=== PATIENT | female | born 1965 | race Caucasian/White ===

== ENCOUNTER 2018-05-06 14:46 | Inpatient (IN) | payer MEDICARE, MEDICAID ==
[2018-05-06] MEDS ORDERED: SUMAtriptan 50 MG Tab PO PRN (16:54)
[2018-05-06] MEDS ORDERED: Naloxone 0.4 MG/ML SDV IV PRN (16:55)
[2018-05-06] MEDS ORDERED: Dextrose 5%-Lactated Ringers 1,000 ML IV SCH (17:00)
[2018-05-06] MEDS: MVI, Adult with Vitamin K 10 ML, Chromium/Copper/Mang/Selen/Zn 1 ML in Dextrose 5%-Lact... IV SCH ×3 (17:38)
[2018-05-06] MEDS: HYDROmorphone/Normal Saline 15 MG/30 ML PCA IV PRN (17:40)
[2018-05-06] MEDS: Pantoprazole 40 MG Vial IV SCH (17:47)
[2018-05-06] MEDS: Magnesium Sulfate/Water 2 GM in Premix Bag 1 BAG IV SCH (17:57)
[2018-05-06] MEDS: ALPRAZolam 0.5 MG Tab PO PRN (20:02)
[2018-05-06] MEDS: Mirtazapine 15 MG Tab PO SCH (20:03)
[2018-05-07] MEDS: Magnesium Sulfate/Water 2 GM in Premix Bag 1 BAG IV SCH ×5 (05:40→18:25)
[2018-05-07] MEDS: Pantoprazole 40 MG Vial IV SCH ×2 (05:44→19:06)
[2018-05-07] MEDS ORDERED: Dextrose 5%-Lactated Ringers 1,000 ML IV SCH (08:45)
[2018-05-07] MEDS ORDERED: Magnesium Citrate Solution 296 ML Bottle PO ONE (09:00)
[2018-05-07] MEDS: Ondansetron 4 MG/2 ML SDV IV PRN ×2 (09:08→20:18)
[2018-05-07] MEDS: valACYclovir 1,000 MG Tab PO SCH (09:14)
[2018-05-07] MEDS: ESTROPIPATE 0.75 MG PO SCH (09:15)
[2018-05-07] MEDS: Lithium Carbonate 450 MG Tab.ER PO SCH (09:15)
[2018-05-07] MEDS: Sertraline 50 MG Tab PO SCH (09:15)
[2018-05-07] MEDS: ALPRAZolam 0.5 MG Tab PO PRN ×4 (09:18→22:09)
--- NOTE | 2018-05-07 09:26 | CR ---
Abdomen 2V AP Flat Upright INDICATION: Postoperative abdomen. FINDINGS: There is mild gaseous prominence involving the transverse colon and splenic flexure locatio ns. Multiple surgical sutures are seen in the left lower quadrant. There is no significant small mary l distention. There is a small amount of air in the rectum. Impression: 1. No evidence for obstruction. Possible mild postoperative ileus.
--- NOTE | 2018-05-07 09:32 | PCM.HP ---
H&P History of Present Illness - General Date of Service: 05/06/18 Admit Problem/Dx: Admission Diagnosis/Problem Admission Diagnosis/Problem Anemia Source of Information: Patient - History of Present Illness Initial Comments - Free Text/Narative: Belkys was discharged on 05/01/18 after a Diagnostic Laproscopic turned to Laoarotomy with lysis of adhesions and lysis of adhesions, revision of JJ component of RNY, small bowel stricturoplasty and repair of incarcerated Revision of RNY Gastric Bypass Surgery - date 02/27/18. She states she was not having any problems until 05/04/18 when she noticed the left side of her abdomen was larger than the right and she had more pain. As the day went on she noticed some bruising and by 05/05/18 the bruising was quite extensive extending from the left abdomen around to her left back and in her lower abdomen. She was hospitalized at [facility]. She also started having black stools. On Admission she had 2 units of PRBCs for a hemoglobin of 6.8. Day of surgery her hemoglobin was 13. Belkys was accepted as a transfer to [facility] on 05/06/18 because she was unable to eat or drink, fairly large hematoma and concern of a partial small bowel obstruction. Location: Reports: Abdomen Quality: Reports: Dull, Pressure, Throbbing Severity: Mild Improves with: Reports: Medication Worsens with: Reports: None Associated Symptoms: Reports: Loss of Appetite, Nausea/Vomiting, Weakness Abdomen Pain Score (Numeric/FACES): 10 - Related Data Allergies/Adverse Reactions: Allergies Allergy/AdvReac Type Severity Reaction Status Date / Time carisoprodol [From Soma] Allergy Nausea and Verified 04/29/18 06:51 Vomiting Home Medications: Home Meds ALPRAZolam [Xanax] 0.5 mg PO TID PRN 08/16/16 [History] Calcium Carbonate/Vitamin D3 [Calcium 600 + Vit D Tablet] 600 mg PO BID [History] Cholecalciferol (Vitamin D3) [Vitamin D] 5,000 unit PO .TWICE WEEKLY 08/16/16 [ History] Cyanocobalamin (Vitamin B-12) [Vitamin B-12] 1,000 mcg PO DAILY 08/16/16 [ History] Estropipate 6 mg PO DAILY 08/16/16 [History] Goodwell Carbonate [Eskalith CR] 450 mg PO DAILY 08/16/16 [History] Metoclopramide HCl [Reglan] 10 mg PO DAILY 08/16/16 [History] Mirtazapine [Remeron] 45 mg PO DAILY 08/16/16 [History] Omeprazole Magnesium [Prilosec Otc] 40 mg PO DAILY 08/16/16 [History] SUMAtriptan Succinate [Imitrex] 50 - 100 mg PO ASDIRECTED PRN 08/16/16 [History] valACYclovir [Valtrex] 1,000 mg PO DAILY PRN 08/16/16 [History] Ergocalciferol (Vitamin D2) [Vitamin D2] 50,000 units PO .2X/WEEK 04/24/18 [ History] Linaclotide [Linzess] 145 mcg PO DAILY 04/24/18 [History] Multivitamins [Childrens Chewable Vitamin] 1 tab CHEW BID 04/24/18 [History] Naltrexone HCl [Revia] 50 mg PO DAILY 04/24/18 [History] Ondansetron [Zofran ODT] 4 mg PO Q4H PRN 04/24/18 [History] Sennosides/Docusate Sodium [Senokot-S Tablet] 2 tab PO BEDTIME 04/24/18 [History ] Sertraline HCl [Zoloft] 150 mg PO DAILY 04/24/18 [History] Acetaminophen/HYDROcodone [Kaufman 325-5 MG] 1 tab PO Q4H PRN #40 tab 05/01/18 [Rx ] Ondansetron [Zofran ODT] 4 mg PO Q4H PRN #30 tab.dis 05/01/18 [Rx] Past Medical History HEENT History: Reports: Impaired Vision Gastrointestinal History: Reports: Cholelithiasis, Chronic Constipation, Chronic Diarrhea, GERD Genitourinary History: Reports: Other (See Below) Other Genitourinary History: kidney infection PHYSICIAN ASSISTANT CERTIFIED History: Reports: Neurological History: Reports: Migraines Psychiatric History: Reports: Anxiety, Bipolar, Depression Hematologic History: Reports: B12 Deficiency Oncologic (Cancer) History: Reports: Ovarian - Infectious Disease History Infectious Disease History: Reports: Chicken Pox - Past Surgical History HEENT Surgical History: Reports: Oral Surgery, Other (See Below) Other HEENT Surgeries/Procedures: "Nails in 4 front bottom teeth to hold them into gums" GI Surgical History: Reports: Bariatric Procedure, Cholecystectomy, Colonoscopy , EGD Female Surgical History: Reports: Hysterectomy Neurological Surgical History: Reports: None Social & Family History - Family History Family Medical History: Noncontributory - Tobacco Use Smoking Status *Q: Current Some Day Smoker Years of Tobacco use: 3 Packs/Tins Daily: 0 Used Tobacco, but Quit: No Second Hand Smoke Exposure: No - Caffeine Use Caffeine Use: Reports: Coffee Caffeine Use Comment: 2 cups/day. - Alcohol Use Days Per Week of Alcohol Use: 0 - Recreational Drug Use Recreational Drug Use: Yes Drug Use in Last 12 Months: No Recreational Drug Type: Reports: Marijuana/Hashish Other Recreational Drug Type: None used in over 2 years. Recreational Drug Last Use: 2 years H&P Review of Systems - Review of Systems: Review Of Systems: ROS reveals no pertinent complaints other than HPI. Exam - Exam Exam: See Below - Vital Signs Vital Signs: Last Vital Signs Temp 96.8 F 05/07/18 06:55 Pulse 66 05/07/18 06:55 Resp 18 05/07/18 06:55 BP 138/76 05/07/18 06:55 Pulse Ox 94 L 05/07/18 08:00 Weight: 127 lb 12.8 oz - Exam Quality Assessment: DVT Prophylaxis General: Alert, Oriented, Cooperative, Mild Distress HEENT: PERRLA, Conjunctiva Clear Neck: Supple Lungs: Clear to Auscultation, Normal Respiratory Effort Cardiovascular: Regular Rate, Regular Rhythm GI/Abdominal Exam: Normal Bowel Sounds, Soft, Other (generalized tenderness. Large hematoma lower abdomen and around left mid back. Makenzie are intact. ) (Female) Exam: Deferred Rectal (Female) Exam: Deferred Back Exam: Other (bruising into left back. ) Extremities: Normal Inspection, Non-Tender, No Pedal Edema Skin: Warm, Dry, Intact, Other (see above for description of bruising) Neurological: Cranial Nerves Intact Neuro Extensive - Mental Status: Alert, Oriented x3, Normal Mood/Affect Neuro Extensive - Motor, Sensory, Reflexes: CN II-XII Intact Psychiatric: Alert, Normal Affect, Normal Mood - Patient Data Lab Results Last 24 hrs: Laboratory Results - last 24 hr 05/06/18 05/07/18 05/07/18 Range/Units 16:47 04:00 04:00 WBC 8.5 (4.5-11.0) K/uL RBC 3.20 L (3.30-5.50) M/uL Hgb 9.8 L (12.0-15.0) g/dL Hct 30.3 L (36.0-48.0) % MCV 95 (80-98) fL MCH 31 (27-31) pg MCHC 32 (32-36) % Plt Count 403 H (150-400) K/uL Sodium 140 (140-148) mmol/L Potassium 3.2 L (3.6-5.2) mmol/L Chloride 107 (100-108) mmol/L Carbon Dioxide 29 (21-32) mmol/L Anion Gap 7.2 (5.0-14.0) mmol/L BUN 4 L (7-18) mg/dL Creatinine 0.6 (0.6-1.0) mg/dL Est Cr Clr Drug Dosing 94.71 mL/min Estimated GFR (MDRD) > 60 (>60) Glucose 110 H (74-106) mg/dL Calcium 7.3 L (8.5-10.1) mg/dL Phosphorus 4.1 (2.5-4.9) mg/dL Ferritin 197 (8-388) ng/ml Total Bilirubin 0.7 (0.2-1.0) mg/dL AST 23 (15-37) U/L ALT 20 (12-78) U/L Alkaline Phosphatase 106 (46-116) U/L Total Protein 4.7 L (6.4-8.2) g/dL Albumin 2.2 L (3.4-5.0) g/dL Globulin 2.5 (2.3-3.5) g/dL Albumin/Globulin Ratio 0.9 L (1.2-2.2) Vitamin B12 1432 H (193-986) pg/ml Blood Type O POSITIVE Gel Antibody Screen Negative Crossmatch See Detail Result Diagrams: 05/07/18 04:00 05/07/18 04:00 - Problem List (1) Hematoma SNOMED Code(s): 083611014 ICD Code: T14.8XXA - OTHER INJURY OF UNSPECIFIED BODY REGION, INITIAL ENCOUNTER Status: Acute Current Visit: Yes Problem List Initiated/Reviewed/Updated: Yes Orders Last 24hrs: Active Orders 24 hr Category Date Time Status Admission Status [Patient Status] [ADT] Routine ADT 05/06/18 16:30 Active Ambulate [RC] QID Care 05/06/18 16:43 Active Intake and Output [RC] QSHIFT Care 05/06/18 16:43 Active Overnight Pulse Oximetry [RC] Click to Edit Care 05/06/18 16:43 Active Up to Chair [RC] QID Care 05/06/18 16:43 Active Vital Signs [RC] Q4H Care 05/06/18 16:42 Active Clear Liquid Diet [DIET] Diet 05/07/18 Dinner Active Abdomen 2V AP Flat Upright [CR] Routine Exams 05/07/18 04:00 Taken RED BLOOD CELLS LP [BBK] Routine Lab 05/06/18 16:47 Results TYPE AND SCREEN [BBK] Routine Lab 05/06/18 16:47 Results ALPRAZolam [Xanax] Med 05/06/18 16:53 Active 0.5 mg PO TID PRN Dextrose 5%-Lactated Ringers 1,000 ml Med 05/07/18 08:45 Active IV ASDIRECTED Docusate Sodium/Sennosides [Senna Plus] Med 05/06/18 21:00 Active 2 tab PO BEDTIME HYDROmorphone/Normal Saline [Dilaudid SCIENTIFIC MANAGER 15 MG in NS Med 05/06/18 16:55 Active 30 ML] 0 mg IV ASDIRECTED PRN Linaclotide [Linzess] Med 05/07/18 09:00 Active 145 mcg PO DAILY Goodwell Carbonate [Eskalith CR] Med 05/07/18 09:00 Active 450 mg PO DAILY MVI, Adult with Vitamin K [Infuvite Adult] 10 ml Med 05/06/18 17:00 Active Chromium/Copper/Je/Selen/Zn [Multitrace-5 Concentrate ] 1 ml Dextrose 5%-Lactated Ringers 1,000 ml IV DAILY@1700 Magnesium Sulfate/Water [Magnesium Sulfate 2 GM in Med 05/06/18 18:00 Active Water 50 ML] 2 gm Premix Bag 1 bag IV Q6H Mirtazapine [Remeron] Med 05/06/18 21:00 Active 45 mg PO BEDTIME Naloxone [Narcan] Med 05/06/18 16:55 Active 0.1 mg IV ASDIRECTED PRN Non-Formulary Medication [NF Drug] Med 05/07/18 09:00 Active 0 each PO DAILY Ondansetron [Zofran] Med 05/06/18 16:50 Active 4 mg IV Q4H PRN Pantoprazole [ProTONIX IV] Med 05/06/18 18:00 Active 40 mg IV Q12H Pneumococcal Polyvalent-23 Vac [Pneumovax 23] Med 05/07/18 14:00 Once 0.5 ml IM .ONCE ONE Potassium Chloride [Klor-Con M20] Med 05/07/18 08:45 Active 20 meq PO TIDMEALS SUMAtriptan [Imitrex] Med 05/06/18 16:54 Active 50 mg PO DAILY PRN Sertraline [Zoloft] Med 05/07/18 09:00 Active 150 mg PO DAILY valACYclovir [Valtrex] Med 05/07/18 09:00 Active 1,000 mg PO DAILY Pulse Oximetry Continuous Monitoring [OM.PC] Routine Oth 05/06/18 16:43 Ordered SCD [Sequential Compression Device] [OM.PC] Routine Oth 05/06/18 16:43 Ordered Medication Orders Alprazolam (Xanax) 0.5 mg PO TID PRN PRN Reason: ANXIETY Last Admin: 05/06/18 20:02 Dose: 0.5 mg Hydromorphone HCl (Dilaudid Leather Grainer 15 Mg In Ns 30 Ml) 0 mg IV ASDIRECTED PRN; Protocol PRN Reason: SCIENTIFIC MANAGER PAIN CONTROL Last Admin: 05/06/18 17:40 Dose: 15 mg Multivitamins/Minerals 10 ml/Chromium/Copper/Manganese/Seleni/Zn 1 ml/ Dextrose/ Lactated Ringer's 1,011 mls @ 100 mls/hr IV DAILY@1700 CRYSTAL Last Admin: 05/06/18 17:38 Dose: 100 mls/hr Magnesium Sulfate 2 gm/ Premix 50 mls @ 25 mls/hr IV Q6H [facility] Stop: 05/09/18 13:59 Last Admin: 05/07/18 05:40 Dose: 25 mls/hr Infusion: 05/07/18 02:00 Dose: 25 mls/hr Admin: 05/07/18 00:00 Dose: 25 mls/hr Infusion: 05/06/18 19:57 Dose: 25 mls/hr Admin: 05/06/18 17:57 Dose: 25 mls/hr Dextrose/Lactated Ringer's (Dextrose 5%-Lactated Ringers) 1,000 mls @ 80 mls/ hr IV ASDIRECTED [facility] Linaclotide (Linzess) 145 mcg PO DAILY [facility] Last Admin: 05/07/18 09:15 Dose: 145 mcg Goodwell Carbonate (Eskalith Cr) 450 mg PO DAILY [facility] Last Admin: 05/07/18 09:15 Dose: 450 mg Mirtazapine (Remeron) 45 mg PO BEDTIME [facility]AL Last Admin: 05/06/18 20:03 Dose: 45 mg Naloxone HCl (Narcan) 0.1 mg IV ASDIRECTED PRN PRN Reason: decreased respiratory rate Estropipate 0.75mg (Tab) 0 each PO DAILY [facility] Last Admin: 05/07/18 09:15 Dose: Not Given Ondansetron HCl (Zofran) 4 mg IV Q4H PRN PRN Reason: N/V Last Admin: 05/07/18 09:08 Dose: 4 mg Pantoprazole Sodium (Protonix Iv) 40 mg IV Q12H [facility] Last Admin: 05/07/18 05:44 Dose: 40 mg Admin: 05/06/18 17:47 Dose: 40 mg Pneumococcal Polyvalent Vaccine (Pneumovax 23) 0.5 ml IM .ONCE ONE Stop: 05/07/18 14:01 Potassium Chloride (Klor-Con M20) 20 meq PO TIDMEALS [facility] Stop: 05/07/18 17:01 Senna/Docusate Sodium (Senna Plus) 2 tab PO BEDTIME [facility] Last Admin: 05/06/18 20:01 Dose: 2 tab Sertraline HCl (Zoloft) 150 mg PO DAILY [facility] Last Admin: 05/07/18 09:15 Dose: 150 mg Sumatriptan Succinate (Imitrex) 50 mg PO DAILY PRN PRN Reason: MIGRAINE Valacyclovir HCl (Valtrex) 1,000 mg PO DAILY [facility] Last Admin: 05/07/18 09:14 Dose: 1,000 mg Assessment/Plan Comment:: Admit to Inpatient Length of stay estimated at 2 nights and 3 days See EMR for Admission orders; Kori Higginbotham 05/06/18
[2018-05-07] MEDS: Potassium Chloride 20 MEQ Tab.ER PO SCH ×3 (09:44→18:25)
[2018-05-07] MEDS ORDERED: Pneumococcal Polyvalent-23 Vaccine 0.5 ML SDV IM ONE (14:00)
[2018-05-07] MEDS: HYDROmorphone/Normal Saline 15 MG/30 ML PCA IV PRN (14:42)
[2018-05-07] MEDS: MVI, Adult with Vitamin K 10 ML, Chromium/Copper/Mang/Selen/Zn 1 ML in Dextrose 5%-Lact... IV SCH ×3 (16:32)
[2018-05-07] MEDS: Mirtazapine 15 MG Tab PO SCH (20:12)
[2018-05-08] MEDS: Magnesium Sulfate/Water 2 GM in Premix Bag 1 BAG IV SCH ×2 (01:04→06:53)
[2018-05-08] MEDS: Pantoprazole 40 MG Vial IV SCH (06:53)
[2018-05-08] MEDS ORDERED: Acetaminophen/HYDROcodone 325-5 MG Tab PO PRN (08:31)
[2018-05-08 08:43] VITALS: BP 121/67
[2018-05-08] MEDS: ESTROPIPATE 0.75 MG PO SCH (09:10)
[2018-05-08] MEDS: Sertraline 50 MG Tab PO SCH (09:12)
[2018-05-08] MEDS: valACYclovir 1,000 MG Tab PO SCH (09:13)
[2018-05-08] MEDS: Lithium Carbonate 450 MG Tab.ER PO SCH (09:14)
[2018-05-08] MEDS: ALPRAZolam 0.5 MG Tab PO PRN (09:19)
--- NOTE | 2018-05-08 10:21 | CR ---
2 view abdomen Comparison: 07 May 2018. There continues to be mild gas-filled loops of bowel in the left upper quadrant of the abdomen. There is no free air. There are no significant air-fluid levels. Impression:. Probable postoperative ileus. A partial obstruction cannot be excluded.
--- NOTE | 2018-05-08 12:46 | DISCH ---
ADMISSION DIAGNOSES: 1. Hematoma, black tarry stools. Hemoglobin prior to admission of 6.8. Received 2 units of packed red blood cells at [facility], so on admission hemoglobin was 9.8. 2. Status post diagnostic laparoscopy converted to laparotomy with lysis of adhesions, revision of the jejunojejunostomy component of the Mahnaz-en-Y gastric bypass surgery, separate small bowel resection, small bowel stricturoplasty, repair of incarcerated incisional hernia, placement of Interceed mesh against pelvic and abdominal little to limit adhesion formation between all structures and underlining viscera for postoperative diagnosis. Date of that surgery was 02/27/2018. HISTORY: Belkys Lim had the above surgery on 02/27/2018. She was discharged on 03/01/2018 without any complications. She developed increased pain and swelling in her lower abdomen on 05/04/2018 and went to the [facility] on 05/05/2018. Hemoglobin was 6.8. She received 2 units of packed red blood cells. She was transferred on 05/06/2018 to [facility] because of her inability to eat or drink very much and to be reevaluated due to the large hematoma in her abdomen. HOSPITAL COURSE: Belkys was admitted on 05/06/2018. She did have lab work and was started on a MANAGER SHIP for pain, was given Zofran, magnesium, and her home medications. She remained just on sips of clear liquids. On 05/07/2018, she was started on a step-3 diet. Her potassium was replaced. She was given some bowel stimulation. Labs and abdominal x-ray were ordered. On 05/08/2018, she was able to be discharged to home without any complications. Her hemoglobin on the day of discharge was 9.8, glucose 109, calcium 7.4, and magnesium was 2.5. REVIEW OF SYSTEMS: CONSTITUTIONAL: Denies any fever, chills, night sweats, or fatigue. HEENT: Negative. NECK: Negative. CHEST: No chest pain or shortness of breath. LUNGS: No cough. ABDOMEN: Having bowel movements. Pain she states is a 3 to 4/10. She is having bowel movements. Appetite is good. EXTREMITIES: No joint pain or swelling. NEUROLOGIC: Denies headache, dizziness, or loss of coordination. SKIN: Without rash. PSYCHIATRIC: Mood and affect appropriate. Remainder of review of systems negative for any pertinent positives or negatives. OBJECTIVE: GENERAL: Belkys Lim is a pleasant 52-year-old female. VITAL SIGNS: Height is 5 feet 4 inches. Weight is 127 pounds. BMI is 21. TPR 97, 73, 18, and blood pressure 121/67. HEENT: Negative. NECK: Supple. HEART: Regular rate and rhythm. LUNGS: Clear. ABDOMEN: Makenzie intact. These will be removed prior to discharge and Steri-Strips will be placed. She has extensive bruising in her lower pelvic area, extending around to her back. The area of bruising is soft and remains to be slightly tender. EXTREMITIES: Without peripheral edema. NEURO: Intact. PSYCHIATRIC: Negative. DISPOSITION: Discharged home. CONDITION: Stable and improving. FOLLOWUP APPOINTMENT: Kori Oliver PA-C, on 05/14/2018 at 10 a.m. She is to have a CBC done at 9:30 prior to her appointment. DISCHARGE MEDICATIONS: Home medications, Morgan 5/325 mg one tablet every 4 hours p.r.n. pain, #40. She is to resume her home medications including all vitamins and supplements. Discontinue taking naltrexone until after she is done taking the narcotic pain medication. DISCHARGE DIET: Step-3 gastric bypass diet. Drink 8 to 10 glasses of water a day. ACTIVITY: No lifting greater than 10 pounds for 6 weeks[address] Driving, do not drive while on pain medication. May shower. DISCHARGE INSTRUCTIONS: Notify provider of any fever, increased pain, nausea, or vomiting. Keep site clean and dry. Wear abdominal binder for 6 weeks. Use incentive spirometer 10 times every hour while awake for one week.
--- NOTE | 2018-05-09 08:14 | PN ---
DATE OF SERVICE: 05/07/2018 The patient has been afebrile with stable vital signs. Pain has decreased quite a bit overnight, and we will give her a step-3 diet today and see how that goes. Potassium is marginal but will supplement that orally and give her some bowel stimulation. Overall her abdominal x-ray looks fairly unremarkable this morning as well. Her hemoglobin is 9.8, which is stable and actually increased a little bit from the last [place] report, so will not give any additional transfusions today. Nick Loja MD /[id number]
== END 2018-05-08 10:12 | disposition home or self-care (01) | DRG 920 ==
LOC: JP.MS 15:26
PROVIDERS: ADMIT Surgery; ATTEND Surgery
DX: L76.32 Postprocedural hematoma of skin and subcutaneous tissue following other procedure (principal); K56.7 Ileus, unspecified; S30.1XXA Contusion of abdominal wall, initial encounter; F31.9 Bipolar disorder, unspecified; Z72.0 Tobacco use; Z98.84 Bariatric surgery status; Z98.0 Intestinal bypass and anastomosis status; E53.8 Deficiency of other specified B group vitamins; Z90.49 Acquired absence of other specified parts of digestive tract; F41.9 Anxiety disorder, unspecified; G43.909 Migraine, unspecified, not intractable, without status migrainosus; K59.09 Other constipation; K21.9 Gastro-esophageal reflux disease without esophagitis; H54.7 Unspecified visual loss; Z85.43 Personal history of malignant neoplasm of ovary; Z88.8 Allergy status to other drugs, medicaments and biological substances; E87.6 Hypokalemia; X58.XXXA Exposure to other specified factors, initial encounter
CPT/HCPCS: 36415; 74019; 74019-26; 80053; 82607; 82728; 83735; 84100; 85027; 86850; 86900; 86901; 86920; 86922; 94762; A9270-GY; C9113; J1170; J2405; J3475; J7042

== ENCOUNTER 2018-05-26 12:39 | Observation (INO) | payer MEDICARE, MEDICAID ==
--- NOTE | 2018-05-26 13:35 | EDM.PDOC ---
ED HPI GENERAL MEDICAL PROBLEM - General Chief Complaint: Abdominal Pain Stated Complaint: ABD PAIN AROUND TO RT SIDE Time Seen by Provider: 05/26/18 13:20 Source of Information: Reports: Patient, Family History Limitations: Reports: No Limitations - History of Present Illness INITIAL COMMENTS - FREE TEXT/NARRATIVE: 52-year-old female who recently had a Mahnaz-en-Y revision is concerned about some pain and swelling in the upper abdomen. She had "dry heaves" 2 nights ago and has not had a bowel movement in 2 days. No fevers or chills, no shortness of breath. Onset: Unknown/Unsure Location: Reports: Abdomen Severity: Mild Associated Symptoms: Reports: Nausea/Vomiting. Denies: Chest Pain, Fever/Chills , Shortness of Breath, Weakness Abdominal Pain Score (Numeric/FACES): 7 - Related Data Allergies Allergy/AdvReac Type Severity Reaction Status Date / Time carisoprodol [From Soma] AdvReac Nausea and Verified 05/26/18 13:20 Vomiting Home Meds: Home Meds ALPRAZolam [Xanax] 0.5 mg PO TID PRN 08/16/16 [History] Cholecalciferol (Vitamin D3) [Vitamin D] 5,000 unit PO .TWICE WEEKLY 08/16/16 [ History] Cyanocobalamin (Vitamin B-12) [Vitamin B-12] 1,000 mcg PO DAILY 08/16/16 [ History] Estropipate 6 mg PO DAILY 08/16/16 [History] Lynndyl Carbonate [Eskalith CR] 450 mg PO DAILY 08/16/16 [History] Metoclopramide HCl [Reglan] 10 mg PO DAILY 08/16/16 [History] Mirtazapine [Remeron] 45 mg PO DAILY 08/16/16 [History] Omeprazole Magnesium [Prilosec Otc] 40 mg PO DAILY 08/16/16 [History] SUMAtriptan Succinate [Imitrex] 50 - 100 mg PO ASDIRECTED PRN 08/16/16 [History] valACYclovir [Valtrex] 1,000 mg PO DAILY PRN 08/16/16 [History] Ergocalciferol (Vitamin D2) [Vitamin D2] 50,000 units PO .2X/WEEK 04/24/18 [ History] Linaclotide [Linzess] 145 mcg PO DAILY 04/24/18 [History] Multivitamins [Childrens Chewable Vitamin] 1 tab CHEW BID 04/24/18 [History] Ondansetron [Zofran ODT] 4 mg PO Q4H PRN 04/24/18 [History] Sennosides/Docusate Sodium [Senokot-S Tablet] 2 tab PO BEDTIME 04/24/18 [History ] Sertraline HCl [Zoloft] 150 mg PO DAILY 04/24/18 [History] Acetaminophen/HYDROcodone [[place] 325-5 MG] 1 tab PO Q4H PRN #40 tab 05/08/18 [Rx ] Past Medical History HEENT History: Reports: Impaired Vision Gastrointestinal History: Reports: Cholelithiasis, Chronic Constipation, Chronic Diarrhea, GERD Genitourinary History: Reports: Other (See Below) Other Genitourinary History: kidney infection NURSE PRACTITIONER PER DIEM History: Reports: Neurological History: Reports: Migraines Psychiatric History: Reports: Anxiety, Bipolar, Depression Hematologic History: Reports: B12 Deficiency Oncologic (Cancer) History: Reports: Ovarian - Infectious Disease History Infectious Disease History: Reports: Chicken Pox - Past Surgical History HEENT Surgical History: Reports: Oral Surgery, Other (See Below) Other HEENT Surgeries/Procedures: "Nails in 4 front bottom teeth to hold them into gums" GI Surgical History: Reports: Bariatric Procedure, Cholecystectomy, Colonoscopy , EGD Female Surgical History: Reports: Hysterectomy Neurological Surgical History: Reports: None Social & Family History - Family History Family Medical History: Noncontributory - Tobacco Use Smoking Status *Q: Former Smoker Used Tobacco, but Quit: Yes Month/Year Tobacco Last Used: yesterday - Caffeine Use Caffeine Use: Reports: None Caffeine Use Comment: 2 cups/day. - Recreational Drug Use Recreational Drug Use: No ED ROS GENERAL - Review of Systems Review Of Systems: See Below Constitutional: Denies: Fever, Chills, Malaise HEENT: Reports: No Symptoms Respiratory: Denies: Shortness of Breath Cardiovascular: Denies: Chest Pain GI/Abdominal: Reports: Abdominal Pain, Constipation, Nausea, Vomiting. Denies: Diarrhea : Reports: No Symptoms Skin: Reports: No Symptoms Psychiatric: Reports: No Symptoms ED EXAM, GI/ABD - Physical Exam Exam: See Below Exam Limited By: No Limitations General Appearance: Alert, No Apparent Distress Eyes: Bilateral: Normal Appearance (No jaundice) Respiratory/Chest: No Respiratory Distress, Lungs Clear Cardiovascular: Regular Rate, Rhythm GI/Abdominal Exam: Normal Bowel Sounds, Soft, Tender (Some tenderness in the upper abdomen, especially right upper quadrant but no significant distention or mass felt) Course - Vital Signs Last Recorded V/S: Last Vital Signs Temp 95.7 F 05/26/18 13:15 Pulse 73 05/26/18 13:15 Resp 16 05/26/18 13:15 BP 95/57 L 05/26/18 13:15 Pulse Ox 96 05/26/18 13:15 - Orders/Labs/Meds Orders: Medication Orders Alprazolam (Xanax) 0.5 mg PO TID PRN PRN Reason: * Hydromorphone HCl (Dilaudid Show Operations Supervisor 15 Mg In Ns 30 Ml) 0 mg IV ASDIRECTED PRN; Protocol PRN Reason: DEPARTMENT OF SOCIOLOGY CHAIR PAIN CONTROL Dextrose/Lactated Ringer's (Dextrose 5%-Lactated Ringers) 1,000 mls @ 100 mls/ hr IV ASDIRECTED CRYSTAL Linaclotide (Linzess) 145 mcg PO DAILY CRYSTAL Lynndyl Carbonate (Eskalith Cr) 450 mg PO DAILY CRYSTAL Metoclopramide HCl (Reglan) 10 mg IVPUSH Q8H CRYSTAL Mirtazapine (Remeron) 45 mg PO BEDTIME CRYSTAL Naloxone HCl (Narcan) 0.1 mg IV ASDIRECTED PRN PRN Reason: decreased respiratory rate Estropipate 0.75mg (Tab) 0 each PO DAILY CRYSTAL Ondansetron HCl (Zofran) 4 mg IVPUSH Q4H PRN PRN Reason: Nausea Pantoprazole Sodium (Protonix Iv) 40 mg IV Q24H CRYSTAL Senna/Docusate Sodium (Senna Plus) 2 tab PO BEDTIME CRYSTAL Sertraline HCl (Zoloft) 150 mg PO DAILY CRYSTAL Valacyclovir HCl (Valtrex) 1,000 mg PO DAILY CRYSTAL Labs: Laboratory Tests 05/26/18 05/26/18 Range/Units 13:44 13:44 WBC 7.2 (4.5-11.0) K/uL RBC 3.70 (3.30-5.50) M/uL Hgb 11.4 L (12.0-15.0) g/dL Hct 35.2 L (36.0-48.0) % MCV 95 (80-98) fL MCH 31 (27-31) pg MCHC 32 (32-36) % Plt Count 222 (150-400) K/uL Neut % (Auto) 52 (36-66) % Lymph % (Auto) 31 (24-44) % [place] % (Auto) 10 H (2-6) % Eos % (Auto) 6 H (2-4) % Baso % (Auto) 1 (0-1) % Sodium 137 L (140-148) mmol/L Potassium 3.8 (3.6-5.2) mmol/L Chloride 104 (100-108) mmol/L Carbon Dioxide 25 (21-32) mmol/L Anion Gap 11.8 (5.0-14.0) mmol/L BUN 9 D (7-18) mg/dL Creatinine 0.8 (0.6-1.0) mg/dL Est Cr Clr Drug Dosing 67.74 mL/min Estimated GFR (MDRD) > 60 (>60) Glucose 97 (74-106) mg/dL Calcium 8.5 (8.5-10.1) mg/dL Meds: Medications Generic Name Dose Route Start Last Admin Trade Name Freq PRN Reason Stop Dose Admin Alprazolam 0.5 mg 05/26/18 14:50 Xanax PO TID PRN * Hydromorphone HCl 0 mg 05/26/18 14:54 Dilaudid Show Operations Supervisor 15 Mg In Ns 30 Ml IV ASDIRECTED PRN DEPARTMENT OF SOCIOLOGY CHAIR PAIN CONTROL Protocol Dextrose/Lactated Ringer's 1,000 mls @ 100 mls/hr 05/26/18 15:00 Dextrose 5%-Lactated Ringers IV ASDIRECTED CRYSTAL Linaclotide 145 mcg 05/27/18 09:00 Linzess PO DAILY CRYSTAL Lynndyl Carbonate 450 mg 05/27/18 09:00 Eskalith Cr PO DAILY CRYSTAL Metoclopramide HCl 10 mg 05/26/18 16:00 Reglan IVPUSH Q8H CRYSTAL Mirtazapine 45 mg 05/26/18 21:00 Remeron PO BEDTIME CRYSTAL Naloxone HCl 0.1 mg 05/26/18 14:54 Narcan IV ASDIRECTED PRN decreased respiratory rate Estropipate 0.75mg 0 each 05/27/18 09:00 Tab PO DAILY CRYSTAL Ondansetron HCl 4 mg 05/26/18 14:49 Zofran IVPUSH Q4H PRN Nausea Pantoprazole Sodium 40 mg 05/26/18 16:00 Protonix Iv IV Q24H CRYSTAL Senna/Docusate Sodium 2 tab 05/26/18 21:00 Senna Plus PO BEDTIME CRYSTAL Sertraline HCl 150 mg 05/27/18 09:00 Zoloft PO DAILY CRYSTAL Valacyclovir HCl 1,000 mg 05/27/18 09:00 Valtrex PO DAILY CRYSTAL - Re-Assessments/Exams Free Text/Narrative Re-Assessment/Exam: 05/26/18 13:35 CBC and BMP were obtained. 05/26/18 14:05 White count is normal, hemoglobin 11.4. Dr. Loja was present and will see the patient for an assessment. 05/26/18 14:[address] Loja is going to admit the patient for pain control and further workup. Departure - Departure Time of Disposition: 15:42 Disposition: Admitted As Inpatient 66 Condition: Good Clinical Impression: Abdominal pain Qualifiers: Abdominal location: upper abdomen, unspecified Qualified Code(s): R10.10 - Upper abdominal pain, unspecified - Discharge Information
[2018-05-26] MEDS ORDERED: Naloxone 0.4 MG/ML SDV IV PRN (14:54)
[2018-05-26] MEDS ORDERED: Iohexol 647 MG/ML 10 ML SDV PO SCH (17:15)
[2018-05-26] MEDS: Dextrose 5%-Lactated Ringers 1,000 ML IV SCH (17:41)
[2018-05-26] MEDS: Metoclopramide 10 MG/2 ML SDV IVPUSH SCH (17:42)
[2018-05-26] MEDS: Pantoprazole 40 MG Vial IV SCH (17:42)
[2018-05-26] MEDS ORDERED: Iopamidol 612 MG/ML 100 ML Bottle IV SCH (17:45)
[2018-05-26] MEDS ORDERED: Sodium Chloride 0.9% 100 ML IV SCH (17:45)
[2018-05-26] MEDS ORDERED: Iohexol 300 MG/ML 30 ML Bottle PO SCH (18:15)
[2018-05-26] MEDS: HYDROmorphone/Normal Saline 15 MG/30 ML PCA IV PRN (18:44)
[2018-05-26] MEDS: ALPRAZolam 0.5 MG Tab PO PRN (20:08)
[2018-05-26] MEDS ORDERED: Mirtazapine 15 MG Tab PO SCH (21:00)
[2018-05-27] MEDS: Metoclopramide 10 MG/2 ML SDV IVPUSH SCH ×3 (00:14→17:19)
[2018-05-27] MEDS: Dextrose 5%-Lactated Ringers 1,000 ML IV SCH (04:13)
[2018-05-27] MEDS: ALPRAZolam 0.5 MG Tab PO PRN ×2 (08:26→20:52)
[2018-05-27] MEDS: Bisacodyl 5 MG Tab PO SCH ×2 (08:29→20:52)
[2018-05-27] MEDS ORDERED: Sertraline 50 MG Tab PO SCH (09:00)
[2018-05-27] MEDS: ESTROPIPATE 0.75 MG PO SCH (11:01)
[2018-05-27] MEDS: SERTRALINE 100 MG PO SCH (11:01)
[2018-05-27] MEDS: LITHIUM CARBONATE 450 MG PO SCH (11:02)
[2018-05-27] MEDS: VALACYCLOVIR 1000 MG PO SCH (11:02)
[2018-05-27] MEDS: Ondansetron 4 MG/2 ML SDV IVPUSH PRN ×2 (11:25→19:21)
[2018-05-27] MEDS ORDERED: Calcium Carbonate 500 MG Tab.Chew PO PRN (11:33)
--- NOTE | 2018-05-27 13:31 | PN ---
DATE OF SERVICE: 05/27/2018 The patient was admitted overnight with right-sided abdominal pain. CT scan showed some thickening of the small bowel on the right side. This may very well be related to the recent revision of her small bowel anatomy procedure, having been done on 04/29/2018. Overall, she tolerated liquid diet well last night, having less pain. We will go up to step 3 diets today. If she fails on this, we will try getting an upper GI small-bowel followthrough CT scan and postoperative changes. Nick Loja MD /[id number]
[2018-05-27] MEDS: MVI, Adult with Vitamin K 10 ML, Chromium/Copper/Mang/Selen/Zn 1 ML in Dextrose 5%-Lact... IV SCH ×3 (14:38)
[2018-05-27] MEDS: HYDROmorphone/Normal Saline 15 MG/30 ML PCA IV PRN (17:15)
[2018-05-27] MEDS: Pantoprazole 40 MG Vial IV SCH (17:17)
[2018-05-27] MEDS ORDERED: Mirtazapine 15 MG Tab PO PRN (20:59)
[2018-05-27] MEDS ORDERED: MIRTAZAPINE 45 MG PO SCH (21:00)
[2018-05-28] MEDS: Metoclopramide 10 MG/2 ML SDV IVPUSH SCH ×2 (00:30→08:25)
[2018-05-28] MEDS: MVI, Adult with Vitamin K 10 ML, Chromium/Copper/Mang/Selen/Zn 1 ML in Dextrose 5%-Lact... IV SCH ×3 (00:45)
[2018-05-28 08:13] VITALS: BP 120/80
[2018-05-28] MEDS ORDERED: Magnesium Hydroxide 400 MG/5 ML Susp 30 ML Cup PO PRN (08:15)
[2018-05-28] MEDS: Bisacodyl 5 MG Tab PO SCH (08:25)
[2018-05-28] MEDS: LITHIUM CARBONATE 450 MG PO SCH (08:26)
[2018-05-28] MEDS: ESTROPIPATE 0.75 MG PO SCH (08:29)
[2018-05-28] MEDS: VALACYCLOVIR 1000 MG PO SCH (08:29)
[2018-05-28] MEDS: SERTRALINE 100 MG PO SCH (08:30)
[2018-05-28] MEDS: Ondansetron 4 MG/2 ML SDV IVPUSH PRN (08:36)
[2018-05-28] MEDS ORDERED: HYDROmorphone 2 MG Tab PO PRN (08:59)
[2018-05-28] MEDS ORDERED: Dextrose 5%-Lactated Ringers 1,000 ML IV SCH (10:00)
--- NOTE | 2018-05-29 14:07 | DISCH ---
FINAL DIAGNOSES: 1. Right-sided abdominal pain associated with the recent surgery and probable muscle strain, status post lifting. 2. Extensive bariatric surgery status. 3. History of depression and anxiety. OPERATIVE PROCEDURE: None. HOSPITAL COURSE: This is a 52-year-old presenting status post a laparotomy for small bowel obstruction on 04/29/2018. Postoperative, she did have some hematoma, but this is now stabilized, and her hemoglobin on admission now was 11.4. Her complaint on admission was onset of marked right-sided abdominal pain. This appeared to be associated with some recent lifting. A CT scan was obtained, which showed some edema in the small bowel on the right side. This, I suspect is related to a recent surgical intervention as she gets that at somewhat distal reanastomosis at time of her small bowel resection, and at this point, she is tolerating a step-3 diet. She does have a little bit of nausea and she has some Zofran at home and he will be sent home with usual home medications plus Dilaudid 2 to 4 mg p.o. q.4/6h p.r.n. pain, #30 and 3 doses of Milk of Magnesia to take p.r.n. She will be following up with Kori Oliver in [facility] in [place] on 06/11/2018, and she will be instructed to stay on a step-3 diet until that appointment.
== END 2018-05-28 11:00 | disposition home or self-care (01) ==
LOC: JP.ED 12:39 → JP.2SS 14:30
PROVIDERS: ADMIT Surgery; ATTEND Surgery
DX: K63.89 Other specified diseases of intestine (principal); F41.9 Anxiety disorder, unspecified; F31.9 Bipolar disorder, unspecified; E53.8 Deficiency of other specified B group vitamins; Z79.899 Other long term (current) drug therapy; Z88.8 Allergy status to other drugs, medicaments and biological substances; Z98.84 Bariatric surgery status; Z87.891 Personal history of nicotine dependence
CPT/HCPCS: 36415; 74177; 80048; 80053; 80178; 82607; 82728; 82746; 83735; 84100; 85025; 85027; 94762; 96361; 96365; 96366; 96372; 96375; 96376; 99284; 99285; A9270; C9113; G0378; J1170; J2405; J2765; J7042; Q9965; 71260

== ENCOUNTER 2018-10-15 05:35 | Observation (INO) | payer MEDICARE, MEDICAID ==
[2018-10-15] MEDS ORDERED: Bupivacaine 0.5%/EPINEPHrine 1:200,000 50 ML MDV ONE (06:51)
[2018-10-15] MEDS ORDERED: Meropenem 500 MG SDV ONE (06:51)
[2018-10-15] MEDS ORDERED: Acetaminophen 500 MG Tab PO ONE (07:15)
[2018-10-15] MEDS ORDERED: Dextrose 5%-Lactated Ringers 1,000 ML IV SCH (07:30)
[2018-10-15] MEDS ORDERED: fentaNYL 250 MCG/5 ML SDV ONE (07:35)
[2018-10-15] MEDS ORDERED: Neostigmine Methylsulfate 1 MG/ML 5 ML Syringe ONE (07:36)
[2018-10-15] MEDS ORDERED: Glycopyrrolate 0.2 MG/ML 5 ML MDV ONE (07:36)
[2018-10-15] MEDS ORDERED: Dexamethasone 4 MG/ML SDV ONE (07:36)
[2018-10-15] MEDS ORDERED: Rocuronium 50 MG/5 ML Vial ONE (07:36)
[2018-10-15] MEDS ORDERED: Ondansetron 4 MG/2 ML SDV ONE (07:36)
[2018-10-15] MEDS ORDERED: Propofol 200 MG/20 ML SDV ONE (07:36)
[2018-10-15] MEDS: cefOXitin 2 GM in Sodium Chloride 0.9% 50 ML IV ONE ×2 (08:29→10:45)
[2018-10-15] MEDS ORDERED: fentaNYL 100 MCG/2 ML SDV ONE ×2 (08:42→09:10)
[2018-10-15] MEDS ORDERED: Ketamine 50 MG in Sodium Chloride 0.9% 49.5 ML IV SCH (08:45)
[2018-10-15] MEDS ORDERED: Ketamine 500 MG/5 ML MDV IV SCH (08:45)
[2018-10-15] MEDS ORDERED: EPINEPHRINE NERVRT SCH ×4 (08:45)
[2018-10-15] MEDS ORDERED: SODIUM CHLORIDE 0.9% NERVRT SCH ×4 (08:45)
[2018-10-15] MEDS ORDERED: DEXAMETHASONE NERVRT SCH ×4 (08:45)
[2018-10-15] MEDS ORDERED: ROPIVACAINE NERVRT SCH ×4 (08:45)
[2018-10-15] MEDS ORDERED: HYDROmorphone 1 MG/ML Syringe IV PRN (10:41)
[2018-10-15] MEDS ORDERED: Ondansetron 4 MG/2 ML SDV IVPUSH PRN (10:47)
[2018-10-15] MEDS ORDERED: METOCLOPRAMIDE 10 MG PO PRN (10:49)
[2018-10-15] MEDS: ALPRAZolam 0.5 MG Tab PO PRN ×2 (11:11→20:33)
[2018-10-15] MEDS: Acetaminophen 1,000 MG in Premix Bag 1 BAG IV SCH ×2 (14:10→20:21)
[2018-10-15] MEDS: oxyCODONE 5 MG Tab PO PRN ×4 (14:19→23:43)
[2018-10-15] MEDS: ceFAZolin 2 GM in Premix Bag 1 BAG IV SCH ×2 (14:35→22:09)
[2018-10-15] MEDS ORDERED: Benzocaine/Cetylpyridinium/Menthol Lozenge MUCMEM PRN (15:57)
[2018-10-15] MEDS: Dextrose 5%-Lactated Ringers 1,000 ML IV SCH (17:24)
[2018-10-15] MEDS: MIRTAZAPINE 45 MG PO SCH (20:25)
[2018-10-15] MEDS ORDERED: Mirtazapine 15 MG Tab PO SCH (21:00)
[2018-10-16] MEDS: Dextrose 5%-Lactated Ringers 1,000 ML IV SCH (00:38)
[2018-10-16] MEDS: ALPRAZolam 0.5 MG Tab PO PRN ×4 (00:53→20:08)
[2018-10-16] MEDS: Acetaminophen 1,000 MG in Premix Bag 1 BAG IV SCH ×2 (02:38→07:32)
[2018-10-16] MEDS: Cyclobenzaprine 10 MG Tab PO PRN ×3 (02:45→15:58)
[2018-10-16] MEDS: oxyCODONE 5 MG Tab PO PRN ×5 (02:45→17:59)
[2018-10-16] MEDS ORDERED: Pantoprazole 40 MG Tab.CR PO SCH (07:30)
[2018-10-16] MEDS ORDERED: OMEPRAZOLE 40MG (PTOM) PO SCH (07:30)
[2018-10-16] MEDS ORDERED: ALPRAZolam 0.5 MG Tab PO PRN (07:43)
[2018-10-16] MEDS ORDERED: valACYclovir 1,000 MG Tab PO PRN (07:43)
[2018-10-16] MEDS ORDERED: Ondansetron 4 MG Tab.DIS PO PRN (07:43)
[2018-10-16] MEDS ORDERED: Mirtazapine 15 MG Tab PO SCH (09:00)
[2018-10-16] MEDS ORDERED: LITHIUM CARBONATE 450 MG PO SCH (09:00)
[2018-10-16] MEDS ORDERED: LINACLOTIDE 145 MCG PO SCH (09:00)
[2018-10-16] MEDS ORDERED: Sertraline 50 MG Tab PO SCH ×2 (09:00)
[2018-10-16] MEDS ORDERED: SERTRALINE 100 MG PO SCH (09:00)
[2018-10-16] MEDS ORDERED: Lithium Carbonate 450 MG Tab.ER PO SCH (09:00)
[2018-10-16] MEDS ORDERED: Estradiol 0.5 MG Tab PO SCH (09:00)
[2018-10-16] MEDS ORDERED: ESTRADIOL 1 MG PO SCH (09:00)
[2018-10-16] MEDS: Cyanocobalamin (Vitamin B12) 1,000 MCG Tab PO SCH (09:17)
--- NOTE | 2018-10-16 10:07 | PN ---
DATE OF SERVICE: 10/16/2018 SUBJECTIVE: Belyks is postop day #1. She is on oral pain medications. States her pain is controlled. Has no other concerns or questions. Vital signs have been stable. OBJECTIVE: GENERAL: Belkys Lim is a 53-year-old female. VITAL SIGNS: TPR is 98.3, 82, 17. Blood pressure 110/64. HEENT: Negative. NECK: Supple. HEART: Regular rate and rhythm. LUNGS: Clear. ABDOMEN: Dressings dry and intact. Abdominal binder is on. EXTREMITIES: Without peripheral edema. ASSESSMENT: Exploratory laparoscopy with lysis of adhesions, repair of incarcerated umbilical hernia, incarcerated incisional hernia and non-incarcerated epigastric hernia, and placement of Vicryl mesh, for incarcerated umbilical hernia, incarcerated incisional hernia, and non-incarcerated epigastric hernia. Date of surgery, 10/15/2018. Surgeon, Nick Loja M.D. PLAN: 1. Dressing off, january shower. 2. Replace dressing with pressure dressing over hernia site. 3. Saline lock IV. 4. Home meds were restarted. a. Xanax 0.5 mg t.i.d. p.r.n. b. Docusate sodium, Senokot, senna, 2 tabs p.o. at bedtime. c. Vitamin D 50,000 international units daily. d. Estrace 1 mg oral daily. e. Linzess 145 mcg p.o. daily. f. [place] 450 mg p.o. daily. g. Mirtazapine, Remeron, 45 mg p.o. daily. h. Zofran 4 mg p.o. q.4 hours p.r.n. nausea. i. Sertraline 200 mg p.o. daily. j. Imitrex 50 to 100 mg p.o. as directed p.r.n. headache. k. Valtrex, valacyclovir, 1000 mg p.o. daily p.r.n. cold sores. 5. IV to saline lock. 6. Good pulmonary toilet. 7. Plan discharge in the a.. Kori Oliver PA-C /[id number]
[2018-10-16] MEDS: Nicotine 14 MG/24 Hr Patch TRDERM SCH (14:51)
[2018-10-16] MEDS: Acetaminophen 500 MG Tab PO PRN (19:26)
[2018-10-16] MEDS: MIRTAZAPINE 45 MG PO SCH (20:08)
[2018-10-17] MEDS: oxyCODONE 5 MG Tab PO PRN ×3 (00:46→08:30)
[2018-10-17] MEDS: Cyclobenzaprine 10 MG Tab PO PRN (04:33)
[2018-10-17] MEDS: ALPRAZolam 0.5 MG Tab PO PRN (04:33)
[2018-10-17] MEDS ORDERED: LITHIUM CARBONATE 450 MG PO SCH (06:00)
[2018-10-17] MEDS ORDERED: OMEPRAZOLE 40MG (PTOM) PO SCH (06:00)
[2018-10-17] MEDS ORDERED: LINACLOTIDE 145 MCG PO SCH (06:00)
[2018-10-17] MEDS ORDERED: SERTRALINE 100 MG PO SCH (06:00)
[2018-10-17] MEDS ORDERED: ESTRADIOL 1 MG PO SCH (06:00)
[2018-10-17 08:01] VITALS: BP 112/68
[2018-10-17] MEDS: Cyanocobalamin (Vitamin B12) 1,000 MCG Tab PO SCH (08:36)
[2018-10-17] MEDS: Nicotine 14 MG/24 Hr Patch TRDERM SCH (08:37)
--- NOTE | 2018-10-17 08:48 | DISCH ---
ADMISSION DIAGNOSES: Incarcerated incisional hernia, SP Mahnaz-en-Y gastric bypass surgery, unspecified surgical malabsorption, vitamin B deficiency, history of chemical dependency, bipolar I disorder, anxiety, dyslipidemia, vitamin D deficiency, migraine headaches, and methamphetamine abuse in remission. DISCHARGE DIAGNOSES: Exploratory laparoscopy with lysis of adhesion, repair of incarcerated umbilical hernia, incarcerated incisional hernia and non-incarcerated epigastric hernia and placement of Vicryl mesh for an incarcerated umbilical hernia, incarcerated incisional hernia and non-incarcerated epigastric hernia. Date of surgery 10/15/2018. Surgeon, Nick Loja MD. HISTORY: Belkys Lim is a 53-year-old female who had the above chief complaints. After preoperative evaluation and discussion of possible risks and possible complications, she wished to proceed with surgical procedure. HOSPITAL COURSE: Belkys had her surgery on 10/15/2018. She had no operative complications. On postoperative day #1, she was started on her home medication. IV was saline locked and she was started on oral pain medication. On postoperative day #2, she was able to be discharged to home without any complications. PHYSICAL EXAMINATION: GENERAL: Belkys Lim is a 53-year-old female. VITAL SIGNS: Height is 5 feet 4.17 inches. Weight is 119 pounds. TPR is 98.3, 85, 16 and blood pressure is 112/68. HEENT: Negative. NECK: Supple. HEART: Regular rate and rhythm. LUNGS: Clear. ABDOMEN: Stapled, laparoscopic incisions look good. There is a small area of hematoma on the left lateral mid abdomen area. Abdominal binder has been on with pressure dressing. EXTREMITIES: Without peripheral edema. DISPOSITION: Discharged to home. CONDITION: Stable and improving. FOLLOWUP: With Kori Oliver PA-C, at [facility] 10/25/2018 at 11:00 a.m. HOME MEDICATIONS: 1. Oxycodone 5 mg q.4 hours p.r.n. pain #40. 2. Tylenol 1000 mg q.6 hours p.r.n. pain. 3. Flexeril 10 mg oral q.6 hours p.r.n. muscle spasms #30. 4. Habitrol nicotine patch 14 mg transdermal daily #30 with 1 refill. She is to resume her home medication of vitamin D3 of 5000 international units twice daily, vitamin B12 of 1000 mcg oral [place], [place] [address] units oral twice weekly, Estrace 1 mg oral daily, Linzess 145 mcg oral daily, lithium carbonate 450 mg oral daily, Reglan 10 mg oral daily, Remeron 45 mg oral daily, Children's chewable vitamin 1 chewable twice daily, omeprazole 40 mg oral daily, Zofran ODT 4 mg every 4 hours p.r.n. nausea, Imitrex 50 to 100 mg oral as directed p.r.n. migraine headache, Senna S two tablets oral at bedtime, sertraline 200 mg oral daily, and Valtrex 1000 mg oral daily. DISCHARGE DIET: Diet after discharge: Usual diet as tolerated. Drink 8 to 10 glasses of water a day. ACTIVITY: No lifting over 10 pounds for 6 weeks. Other activity, walk at least 6 times daily inside your home. Driving, do not drive while on pain medication. Shower/bathing, may shower. DISCHARGE INSTRUCTIONS: Notify provider if any fever, increased pain, nausea, or vomiting. Keep site clean and dry. Wear abdominal binder for 6 weeks and dressing over hernia site. Use incentive spirometer 10 times every hour while awake.
[2018-10-17] MEDS ORDERED: Magnesium Hydroxide 400 MG/5 ML Susp 30 ML Cup PO ONE (10:12)
[2018-10-17] MEDS: Acetaminophen 500 MG Tab PO PRN (10:17)
[2018-10-18] MEDS ORDERED: ERGOCALCIFEROL 50000 UNIT PO SCH (09:00)
--- NOTE | 2018-10-20 12:11 | OR ---
DATE OF PROCEDURE: 10/15/2018 PREOPERATIVE DIAGNOSIS: Incisional hernia. POSTOPERATIVE DIAGNOSES: 1. Incarcerated umbilical hernia. 2. Incarcerated incisional hernia. 3. Non-incarcerated epigastric hernia. 4. Extensive intraabdominal adhesions. OPERATIVE PROCEDURES: Diagnostic laparoscopy with lysis of extensive adhesions and: 1. Repair of incarcerated umbilical hernia with mesh ([id number]). 2. Repair of incarcerated incisional hernia with mesh ([id number]). 3. Repair of non-incarcerated epigastric hernia with mesh ([id number]). 4. Placement of Vicryl mesh to displace pelvic and abdominal little and associated mesh from underlying viscera to limit recurrent adhesion formation ([id number]). ANESTHESIA: General. FIELD MACHINIST: Kori Oliver PA-C. INDICATIONS FOR PROCEDURE: This is a 53-year-old presenting with a clinically-evident incisional hernia located in midline incision, which was extended from roughly the umbilicus upward chcf toward the xiphoid. The plan is to proceed with a laparoscopy, laparotomy if necessary, and repair of the hernia with mesh. Potential risks of the procedure including bleeding, infection, injury to underlying viscera, and problems with mesh becoming infected or the hernia recurring were all reviewed, and the patient wishes to proceed. DETAILS OF PROCEDURE: The patient was taken to the operating room, and after general endotracheal anesthesia was induced, a Lares catheter was inserted, and the abdomen was prepped and draped. In the left lateral abdomen, a transverse incision was made, and the peritoneal cavity entered under direct vision with an Optiview trocar, inflated to 15 mmHg pressure with CO2. Following this, the laparoscope was reinserted and no underlying trocar insertion site injuries were seen. The patient was noted to have quite extensive adhesions, primarily, between the omentum and the anterior abdominal wall. Initially, two left-sided 5 mm trocars were placed. These adhesions were taken down. It was eventually encountered that there were, in fact, three separate hernias; one was an umbilical hernia which contained some incarcerated omentum within it; and the more clinically-evident incisional hernia was also associated with some incarcerated omentum within it. These omental attachments were taken down. The patient did have a non-incarcerated epigastric hernia as well, and this had a surface of the falciform ligament, which was divided away from the surface to facilitate more adequate mesh coverage. Once all the adhesions were taken down, the area was mapped out. If all three hernias would be covered by a single piece of mesh, that would be likely a very large mesh. Given this, we selected to use two separate meshes; one for the umbilical and incarcerated incisional hernia, which was a 20.3 cm circular mesh, and then a second mesh measuring 44 cm inserted over the area for the epigastric hernia. This appeared to provide a good coverage of all three sites without an undue amount of mesh covering an overly broad area of the abdominal wall. Both meshes were soaked in antibiotic-containing saline solution. The lower of the mesh was a balloon inflation type mesh, and the balloon catheter was then pulled up through stab wounds centered between the two of the lower hernias, and two 5 mm trocars were placed on the right side to facilitate the entire mesh being well secured. The balloon catheter was blown up, which brought up the mesh to the abdominal wall and then circumferentially affixed with absorbable tacking screws, one on the far circumference and one on the more inner row. The second mesh was then placed, which was a non-balloon mesh, but had an external ring keeping it in an almost flat configuration. A single stitch was placed on the polypropylene side of this mesh and was brought up through the center of the epigastric hernia and then centrally fixed with 2 circumferential rows of normal tacking screws. The balloon inflation catheter and catheter were then removed, and the mesh appeared to be covering all areas well. To limit recurrent adhesion formation between the mesh as well as the remainder of the abdominopelvic wall and the underlying viscera, Vicryl mesh measuring 12 inches square was placed underneath the mesh, and from there, down into the pelvic area behind the urinary bladder and along the pelvic sidewalls. At that point, no further problems were noted. The trocars were removed. The fascia at the 12 mm site was closed with 0 Vicryl stitch, and the skin with 4-0 Vicryl skin stitch. Dressing was applied. The patient was taken to the recovery room in a satisfactory condition. Physician critical care physician assistant, Kori Oliver, played an essential role in assisting in this case, helping to position the patient, retract structures as needed, as well as suturing and cutting sutures when indicated. Her presence improved patient safety and decreased the operative time. Nick Loja MD Job #: [id number]
== END 2018-10-17 10:30 | disposition home or self-care (01) ==
LOC: JP.SDS 05:35 → JP.2SS 05:36 → JP.SDS 05:36 → JP.SDSSCHI 05:36 → UNDOADMIN 05:36 → EDSTATUS 08:45 → JP.SDSSCHI 09:20 → JP.2SS 09:20 → UNDODISIN 10-17 10:30
PROVIDERS: ADMIT Surgery; ATTEND Surgery
DX: K43.0 Incisional hernia with obstruction, without gangrene (principal); K42.0 Umbilical hernia with obstruction, without gangrene; K43.9 Ventral hernia without obstruction or gangrene; K66.0 Peritoneal adhesions (postprocedural) (postinfection); Z98.84 Bariatric surgery status; F31.9 Bipolar disorder, unspecified; F17.210 Nicotine dependence, cigarettes, uncomplicated
CPT/HCPCS: 49329; 49653; 49655; 94762; A9270; C1781; J0131; J0171; J0690; J0694; J1100; J1170; J2020; J2185; J2405; J2704; J2710; J2795; J3010; J3490; J7042; J7050; 96361; 96365; 96366; 96375; 96376; G0378